=== PATIENT | male | born 1950 | race Caucasian/White ===

== ENCOUNTER 2018-11-02 11:20 | Emergency (ER) | payer OTHER ==
[~2018-11-02] VITALS: Ht 182.9 cm; Wt 77.1 kg
[2018-11-02] MEDS ORDERED: NEURONTIN 400400 M1 PO (11:30)
[2018-11-02] MEDS ORDERED: AMBIEN 5 MG TABL5 M1 PO (11:31)
[2018-11-02 11:51] LABS: ABSOLUTE BASOPHILS 0.1 thou/uL (0.0-0.2); ABSOLUTE EOSINOPHILS 0.1 thou/uL (0.0-0.7); ABSOLUTE LYMPHOCYTES 1.8 thou/uL (0.8-5.3); ABSOLUTE MONOCYTES 0.4 thou/uL (0.0-1.2); ABSOLUTE NEUTROPHILS 4.7 thou/uL (1.6-8.1); BASOPHILS 1.1 %; EOSINOPHILS 1.7 %; HEMATOCRIT 46.9 % (42.0-52.0); HEMOGLOBIN 16.2 gm/dL (14.0-18.0); LYMPHOCYTES 25.5 %; MCH 31.1 pg (26.0-34.0); MCHC 34.5 g/dL (28.0-37.0); MCV 90.1 fL (80.0-100.0); MONOCYTES 5.8 %; NUCLEATED RBCS 0 /100WBC; PLATELET COUNT* 252 thou/uL (150-400); POLYS 65.9 %; RBC 5.21 mil/uL (4.50-6.00); RDW-CV 12.2 % (10.5-14.5); WBC 7.2 thou/uL (4.0-11.0)
[2018-11-02 11:55] LABS: ANION GAP 11 mmol/L (7-16); BUN 14 mg/dL (7-18); CALCIUM 10.1 mg/dL (8.5-10.1); CHLORIDE 102 mmol/L (98-107); CO2 27 mmol/L (21-32); CREATININE 1.1 mg/dL (0.6-1.3); GLUCOSE 106 mg/dL (70-99); POTASSIUM 4.2 mmol/L (3.5-5.1); SODIUM 140 mmol/L (136-145)
[2018-11-02 12:04] LABS: ALBUMIN 4.6 g/dL (3.4-5.0); ALKALINE PHOSPHATASE 151 U/L (46-116); SGOT 19 U/L (15-37); SGPT 44 U/L (30-65); TOTAL BILIRUBIN 1.9 mg/dL (<0.1-1.0); TOTAL PROTEIN 8.2 g/dL (6.4-8.2); TROPONIN-I LEVEL <0.06 ng/mL (<0.06)
[2018-11-02 12:05] LABS: URINE BILIRUBIN NEGATIVE (Negative); URINE BLOOD 1+ (Negative); URINE CLARITY CLEAR; URINE COLOR YELLOW; URINE GLUCOSE-RANDOM NEGATIVE (Negative); URINE KETONES TRACE (Negative); URINE LEUKOCYTES-REFLEX NEGATIVE (Negative); URINE NITRITE-REFLEX NEGATIVE (Negative); URINE PROTEIN NEGATIVE (Negative)
[2018-11-02 12:10] LABS: SQUAMOUS 0-3 Few /LPF (0-3); URINE RBC 3-10 Few /HPF (0-2); URINE WBC-REFLEX 0-5 Rare /HPF (0-5)
[2018-11-02 12:11] LABS: BACTERIA-REFLEX 1-9 Few /HPF (None Seen); CASTS None Seen /LPF (None Seen); CRYSTALS None Seen /LPF (None Seen); MUCUS >6 Heavy strn/LPF (None Seen)
[2018-11-02 13:07] VITALS: BP 124/65
--- NOTE | 2018-11-03 12:28 | EKG ---
[place] [address] ELECTROCARDIOGRAM REPORT Name: JEFFRY VALDEZ Room: [facility]#: [id number] Admission: 11/02/18 Attend Phys: Discharge: 11/02/18 Date of : 52 Report #: [id number] THIS REPORT FOR: //name// [facility] ED Test Date: 2018-11-02 Test Time: 11:50:36 Pat Name: JEFFRY VALDEZ Department: Room: Gender: Medical Research Associate: : 1950 Requested By: Henok Soto Order Number: [id number] MD: Star Delaney Measurements Intervals [place] Rate: 67 P: 65 RI: 178 QRS: 62 QRSD: 84 T: 50 QT: 395 QTc: 417 Interpretive Statements Sinus rhythm No previous ECG available for comparison Electronically Signed On 11-03-2018 12:28:07 CDT by Star Delaney [email or web address] <ELECTRONICALLY SIGNED> By: Star Delaney MD, [facility] 11/03/18 1228 1150 1150 Star Delaney MD, FACC /EPI
== END 2018-11-02 13:08 | disposition home or self-care (01) ==
LOC: M.ERS 11:20
PROVIDERS: Emergency Medicine Emergency Medical Services
DX: E86.0 Dehydration (principal)